=== PATIENT | male | born 1960 | race Two or more races ===

== ENCOUNTER 2023-01-18 14:51 | Outpatient (AMB) | payer BC, SELFPAY ==
--- NOTE | 2023-01-18 14:52 | A.OFFVIS_ITS ---
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 He reports coccyx pain with tenderness that is provoked by prolonged sitting, driving, raising from sitting to standing or sitting on hard surfaces that has been worsening for the past 18 months. Per PCP referral, patient was also recently treated for candidiasis of penis and candidal balanitis. Patient denies any symptoms of penile infection today since treating it with clotrimazole 1% cream twice daily for 2 weeks. Patient reports his work includes frequent plane trips to [place] with 5-6 hours of flight. He attempted NSAIDs, repositioning, Donut pillow, or walking with mild and temporary relief. He repositions frequently during today's visit to relieve pressure from his coccyx. Patient denies any fever, weight loss, abdominal or groin pain, back pain, pelvic floor spasms, denies sense of a foreign object in the urethra or rectum, bladder or bowel incontinence or saddle anesthesia. Location Coccyx pain Duration Chronic pain 18 months ~no trauma, injury, or falls Characteristics of symptom or complaint Aching, stabbing, sharp, hurting Aggravating or associated factors Prolonged sitting, hard surfaces Relieving factors Walking, standing, Advil, Ibuprofen Treatment Donut Pillow [facility] Social History Alcohol intake: current Alcohol intake frequency: a few times a month Patient Tobacco Use Status: Never used Tobacco Substance Use Type: Caffiene Substance Use Type Other:: 1 coffee daily Review of Systems Const All systems reviewed & are unremarkable except as noted in HPI and below Physical Exam Vital Signs: Last Vital Signs Pulse 63 01/18/23 14:56 BP 120/66 01/18/23 14:56 Pulse Ox 100 01/18/23 14:56 Oxygen Delivery Method Room Air 01/18/23 14:56 BMI result Body Mass Index 26.4 General: Appears afebrile. Alert and oriented. Mood and affect appropriate. Follows and participates in conversation appropriately. Respiratory effort is unlabored. No cough. Able to transition from sit to stand unassisted. Ambulates with bilaterally normal heel strike and toe off. Back/Spine/Pelvis Cervical Spine: cervical ROM normal and No Cervical spine tenderness Thoracic/Lumbar Spine: thoracic and lumbar spine normal to inspection, No Thoracic/lumbar spine scar(s), thoraco-lumbar ROM normal, Lasegue's sign negative, straight leg raise negative bilaterally, No thoracic spinal tenderness and No lumbar spinal tenderness Pelvis: no buttock tenderness Sacroiliac joints: bilaterally nontender Sacrum: tenderness midline Coccyx: Coccyx tenderness present Assessment & Plan Assessment & Plan (1) Coccygeal pain: Code(s): M53.3 - Sacrococcygeal disorders, not elsewhere classified Plan Tentatively schedule Ganglion Impar Block with local and fluoroscopy for chronic coccyx pain. Continue activity modification, avoid prolonged sitting, utilize Donut Pillow at work and during prolonged plane rides and NSAIDs. Patient will notify our office if he is interested to proceed with injection after discussing with his family. All questions and concerns have been answered and patient agreed with the plan. Follow up as needed. Coding Level of Care Code New Pt Level 4 (57669) Diagnoses Coccygeal pain M53.3
[2023-01-18 14:56] VITALS: BP 120/66; PULSE 63; O2SAT 100; BMI 26.4
== END 2023-01-18 15:18 | disposition home or self-care (01) ==
PROVIDERS: PCP Nurse Practitioner Adult Health; Visit Provider Nurse Practitioner Family
DX: M53.3 Sacrococcygeal disorders, not elsewhere classified (principal)
CPT/HCPCS: 99204

== ENCOUNTER → 2023-01-18 14:51 | Outpatient (BNVA) | payer BC, SELFPAY | PROVIDERS: PCP Nurse Practitioner Adult Health; Visit Provider Nurse Practitioner Family ==